=== PATIENT | female | born 1945 | race Caucasian/White ===

== ENCOUNTER 2018-02-19 10:32 | Emergency (ER) | payer OTHER, BC ==
[~2018-02-19] VITALS: Ht 157.5 cm; Wt 59.6 kg
[~2018-02-19 10:32] MED LIST: ALEVE220 MG PO; ASPIRIN81 M1; CRESTOR10 MG; CRESTOR10 MG PO; Ecotrin PO; LISINOPRIL2.5 MG PO; LITE COAT ASPI325 M1 PO; LO-DOSE ASPIRIN81 M1 PO; VITAMIN D2000 UNIT PO; ZESTRIL,PRINIVIL5 MG; Zestril,Prinivil PO
[2018-02-19 11:44] LABS: BASOPHIL (%) 1.5 % (0-1); BASOPHIL COUNT 0.1 K/uL (0-0.1); EOSINOPHIL (%) 1.1 % (0-5); EOSINOPHIL COUNT 0.1 K/uL (0-0.3); HEMATOCRIT 40.3 % (36.0-46.0); IMMATURE GRANULOCYTE (%) 0.2 % (0.0-0.7); LYMPHOCYTE (%) 42.5 % (15-42); LYMPHOCYTE COUNT 1.9 K/uL (1.0-2.8); MCH 33.4 PG (29.0-34.0); MCHC 34.7 G/DL (30.0-36.0); MCV 96.2 FL (83-99); MONOCYTE (%) 9.4 % (3-12); MONOCYTE COUNT 0.4 K/uL (0-0.8); NEUTROPHIL (%) 45.3 % (45-76); NEUTROPHIL COUNT 2.1 K/uL (1.8-6.4); PLATELET COUNT 203 K/uL (156-360); RBC DIS.WIDTH-CV 12.7 % (11.8-14.6); RBC DIS.WIDTH-SD 45.2 % (39-53); RED BLOOD COUNT 4.19 M/uL (3.80-5.20); WHITE BLOOD COUNT 4.6 K/uL (4.1-10.2)
[2018-02-19 11:52] LABS: CHLORIDE 108 mEq/L (99-109); POTASSIUM 4.5 mEq/L (3.7-5.4); SODIUM 143 mEq/L (136-147)
[2018-02-19 11:53] LABS: GLUCOSE 110 mg/dL (70-99)
[2018-02-19 11:57] LABS: CREATININE 0.8 mg/dL (0.6-1.3); GFR ESTIMATE (CALCULATED) > 59 mL/min/
[2018-02-19 11:58] LABS: UREA NITROGEN (BUN) 15 mg/dL (9-23)
[2018-02-19 12:40] VITALS: BP 145/84
== END 2018-02-19 12:40 | disposition home or self-care (01) ==
LOC: EME 10:32
PROVIDERS: Emergency Medicine
DX: I10 Essential (primary) hypertension (principal); R51 Headache; Z86.79 Personal history of other diseases of the circulatory system; Z87.891 Personal history of nicotine dependence
CPT/HCPCS: 70450; 71045; 80048; 85025; 93005; 99281; 99285

== ENCOUNTER 2018-03-18 11:20 | Emergency (ER) | payer OTHER, BC ==
[~2018-03-18] VITALS: Ht 157.5 cm; Wt 58.1 kg
[2018-03-18 13:27] LABS: HEMATOCRIT 38.1 % (36.0-46.0); HEMOGLOBIN 13.3 G/DL (11.9-15.5); MCH 33.3 PG (29.0-34.0); MCHC 34.9 G/DL (30.0-36.0); MCV 95.5 FL (83-99); PLATELET COUNT 218 K/uL (156-360); RBC DIS.WIDTH-CV 12.3 % (11.8-14.6); RBC DIS.WIDTH-SD 43.6 % (39-53); RED BLOOD COUNT 3.99 M/uL (3.80-5.20); WHITE BLOOD COUNT 6.4 K/uL (4.1-10.2)
[2018-03-18 13:35] LABS: CHLORIDE 102 mEq/L (99-109); POTASSIUM 4.8 mEq/L (3.7-5.4); SODIUM 136 mEq/L (136-147)
[2018-03-18 13:37] LABS: GLUCOSE 111 mg/dL (70-99)
[2018-03-18 13:41] LABS: CREATININE 0.8 mg/dL (0.6-1.3); GFR ESTIMATE (CALCULATED) > 59 mL/min/
[2018-03-18 13:42] LABS: UREA NITROGEN (BUN) 15 mg/dL (9-23)
[2018-03-18 16:21] VITALS: BP 162/81
== END 2018-03-18 16:32 | disposition home or self-care (01) ==
LOC: EME 11:20
PROVIDERS: Emergency Medicine
DX: R20.2 Paresthesia of skin (principal); I10 Essential (primary) hypertension; Z87.891 Personal history of nicotine dependence; Z79.82 Long term (current) use of aspirin
CPT/HCPCS: 70551; 80048; 85027; 99281; 99284; J2060